=== PATIENT | female | born 1985 | race Hispanic/Latino ===

== ENCOUNTER 2016-08-17 02:32 | Emergency (ER) | payer OTHER ==
[~2016-08-17] VITALS: Ht 160 cm; Wt 70.3 kg
[~2016-08-17 02:32] MED LIST: ADDERALL20 MG PO; ALPRAZOLAM0.5 M3 PO; ALPRAZOLAM1 MG PO; AMBIEN10 M1 PO; AMPHETAMINE SAL20 MG PO; ASPIRIN EC81 M1 PO; BENADRYL EXTRA1 CRE TOP; CITALOPRAM HYDR10 MG PO; CRANBERRY FRUI405 MG PO; CYCLOBENZAPRINE10 M1 PO; CYMBALTA 30 MG30 MG PO; DAILY MULTIPLE1 EACH PO; DELTASONE20 MG PO; DEXAMETHASONE4 MG PO; DEXTROAMP-AMPHE20 MG PO; DEXTROAMP-AMPHE30 M1 PO; DILAUDID 4 MG TA4 MG PO; DILAUDID2 M1 PO; DILAUDID2 MG PO; DOXYCYCLINE MO100 MG PO; ESCITALOPRAM10 MG PO; FIORICET W/CODE1 CAP PO; FLOMAX0.4 M1 PO; HYDROCODONE/ACE1 TAB PO; KETOROLAC TROME10 M1 PO; LEVSIN 0.1250.125 MG PO; MELOXICAM15 MG PO; MIXED AMPHETAMI30 M1 PO; NORCO 325 MG-51 TAB PO; ONDANSETRON ODT4 MG PO; PERCOCET 325 MG1 TA2 PO; PERCOCET 5-3251 EACH PO; PRILOSEC 20MG C20 MG PO; PROMETHAZINE HC25 M3 PO; SEROQUEL 100MG100 MG PO; SEROQUEL25 M1 PO; TRAMADOL50 MG PO; TRAZODONE HCL100 MG PO; ULTRAM(MONOGRAP50 MG PO; ZOFRAN ODT4 MG PO; ZOFRAN ODT4 MG SL; ZOFRAN4 M2 PO; ZOLPIDEM TARTRA10 MG PO
[2016-08-17 02:40] VITALS: BP 124/82
[2016-08-17] MEDS ORDERED: DILAUDID2 M1 PO ×2 (03:17→03:32)
[2016-08-17] MEDS ORDERED: IBUPROFEN600 M1 PO ×2 (03:17→03:32)
[2016-08-17] MEDS ORDERED: BACLOFEN10 M1 PO ×2 (03:17→03:32)
--- NOTE | 2016-08-17 03:18 | ED NECK/BACK PAIN COMPLAINT ---
History of Present Illness General Chief Complaint: Low Back Pain/Injury Stated Complaint: LOWER SPINAL PAIN,SENT IN BY PAIN MANAGEMENT Source: patient, old records Exam Limitations: no limitations Vital Signs & Intake/Output Vital Signs & Intake/Output Vital Signs Date Time Temp Pulse Resp B/P Pulse O2 O2 Flow FiO2 Ox Delivery Rate 08/17 0250 Room Air 08/17 0240 98.2 93 18 124/82 96 Room Air Allergies Coded Allergies: metoclopramide (HIVES 09/28/15) Reconcile Medications Alprazolam 1 MG TABLET 1 TAB PO TID PRN ANXIETY (Reported) Aspirin (Ecotrin*) 81 MG TABLET.DR 1 TAB PO DAILY HEART/BLOOD (Reported) CRANBERRY EXTRACT (Cranberry) (Unknown Strength) CAP (Unknown Dose) PO DAILY SUPPLEMENT (Reported) Dextroamphetamine/Amphetamine (Dextroamp-Amphet ER 30 MG Cap) 30 MG CAP.ER.24H 1 CAP PO QAM ADHD (Reported) Dextroamphetamine/Amphetamine (Dextroamp-Amphetamin 20 MG Tab) 20 MG TABLET 1 TAB PO DAILY PRN ADHD (Reported) Hydromorphone HCl (Dilaudid) 2 MG TABLET 1 TAB PO BIDP PRN PAIN Ketorolac Tromethamine 10 MG TABLET 1 TAB PO TID PRN PAIN Multivitamin (Daily Multiple Vitamin) 1 EACH TABLET 1 TAB PO DAILY SUPPLEMENT (Reported) Ondansetron HCl (Zofran) 4 MG TABLET 1 TAB PO Q6-8P PRN NAUSEA Oxycodone HCl/Acetaminophen (Percocet 5-325 MG Tablet) 5 MG-325 MG TABLET 1 TAB PO Q4-6 PRN PAIN Promethazine HCl 25 MG TABLET 1 TAB PO Q6P PRN NAUSEA Tamsulosin HCl (Flomax) 0.4 MG CAP.ER.24H 1 CAP PO DAILY KIDNEY STONE Zolpidem Tartrate (Ambien 10MG) 10 MG TAB 1 TAB PO PRN SLEEP (Reported) Triage Note: PT TO TRIAGE C/O LOWER BACK PAIN, SENT IN BY PAIN MANAGEMENT PT TAKING NEURONTIN AND OXYCODONE WITHOUT RELIEF. Triage Nurses Notes Reviewed? yes Onset: several days Duration: day(s):, constant, continues in ED Timing: recent history Quality/Severity: moderate, radiation, sharpness Location: lumbar spine, paraspinous muscles Radiation: upper legs Loss of Consciousness: no loss of consciousness Modifying Factors: movement, pain medication Associated Symptoms: lower back pain, muscle spasm LMP (ages 10-50): post menopausal : No Patient currently breastfeeds: No HPI: Several days prior to admission patient is had increasing low back pain with radiation to bilateral lower extremities moderate to severe sharp in quality not relieved with current pain medication regimen. She denies fever chills nausea vomiting diarrhea abdominal pain chest pain shortness breath headache dysuria rash bleeding change in motor sensory function change in bowel bladder habit. Past History Travel History Traveled to [place] past 21 day No Medical History Any Pertinent Medical History? see below for history Neurological: MIGRAINES EENT: NONE Cardiovascular: NONE Respiratory: NONE Gastrointestinal: NONE Hepatic: NONE Renal: nephrolithiasis, nephrostomy Musculoskeletal: NONE, rheumatoid arthritis Psychiatric: chronic pain disorder, depression, ANXIETY, DEPRESSION, PTSD, Endocrine: NONE Blood Disorders: NONE Cancer(s): NONE SIGN MAKER/Reproductive: endometriosis History of MRSA: No History of VRE: No History of CDIFF: No Surgical History Surgical History: cholecystectomy, , NEPHROSTOMY TUBE Psychosocial History Who do you live with Family Services at Home None What is your primary language Khmer Tobacco Use: Current Daily Use Daily Tobacco Use Amount/Type: =< 4 Cigarettes daily ETOH Use: denies use Family History Family History, If Any: MOTHER FH: myocardial infarction Relation not specified for: CVA Hx Contributory? No Review of Systems Review of Systems Constitutional: Reports: no symptoms. Eyes: Reports: no symptoms. Ears, Nose, Throat, Mouth: Reports: no symptoms. Respiratory: Reports: no symptoms. Cardiovascular: Reports: no symptoms. Gastrointestinal/Abdominal: Reports: no symptoms. Musculoskeletal: Reports: see HPI, back pain. Skin: Reports: no symptoms. Neurological/Psychological: Reports: no symptoms. All Other Systems: Reviewed and Negative Physical Exam Physical Exam General Appearance: well developed/nourished, alert, awake, anxious, moderate distress, obese Head: atraumatic, normal appearance Eyes: Bilateral: normal appearance, PERRL, EOMI, normal inspection. Ears, Nose, Throat, Mouth: hearing grossly normal, moist mucous membrane Neck: normal inspection, supple, full range of motion, normal alignment Respiratory: normal breath sounds Cardiovascular: regular rate/rhythm Peripheral Pulses: 4+ carotid (R), 4+ carotid (L) Gastrointestinal: normal bowel sounds, soft, non-tender, no organomegaly Back: normal inspection Extremities: normal range of motion Straight Leg Raising: Right: Pain at ____ degrees (10). Left: Pain at ____ degrees (10). Motor: Deficit L4 Right: No Deficit L4 Left: No Deficit L5 Right: No Deficit L5 Left: No Deficit S1 Right: No Deficit S1 Right: No DTR: Deficit L4 Left: No Deficit L4 Right: No Deficit S1 Left: No Deficit S1 Right: No Patellar: 3: L4 Right, L4 Left. Neurologic/Psych: awake, alert, oriented x 3, normal mood/affect Skin: intact, normal color, warm/dry Progress Differential Diagnosis: herniated disc, myofascial strain, T/L spine injury Plan of Care: Current Medications Sig/Erik Start time Last Medication Dose Stop Time Status Admin Cyclobenzaprine HCl 10 MG ONCE ONE 08/17 314 UNVr (Flexeril 10MG Tab) 08/17 315 Gabapentin 600 MG ONCE ONE 08/17 314 UNVr (Neurontin) 08/17 315 Ibuprofen 800 MG ONCE ONE 08/17 314 UNVr (Motrin) 08/17 315 Oxycodone HCl 10 MG ONCE ONE 08/17 314 UNVr (Roxicodone) 08/17 315 Departure Departure Time of Disposition: 314 Disposition: HOME OR SELF CARE Condition: Stable Clinical Impression Primary Impression: Chronic pain syndrome Referrals: STEFAN TOWNSEND MD (PCP/Family) Additional Instructions: Increase your gabapentin to 2 capsules 3 times a day Departure Forms: Customer Survey General Discharge Information Prescriptions: Current Visit Scripts Ibuprofen 1 TAB PO Q6PRN PRN pain #50 TAB with food Baclofen 1 TAB PO TIDPRN PRN muscle spasm/strain #30 TAB Hydromorphone HCl (Dilaudid) 1 TAB PO Q6P PRN pain #15 TAB
== END 2016-08-17 03:46 ==
LOC: ERH 02:32
DX: G89.4 Chronic pain syndrome (principal)

== ENCOUNTER 2016-09-10 02:29 | Emergency (ER) | payer OTHER ==
[~2016-09-10] VITALS: Ht 160 cm; Wt 72.6 kg
[~2016-09-10 02:29] MED LIST changes: +BACLOFEN10 M1 PO; +IBUPROFEN600 M1 PO
[2016-09-10 02:39] VITALS: BP 121/76
--- NOTE | 2016-09-10 02:47 | ED HEAD/FACIAL INJ COMPLAINT ---
History of Present Illness General Chief Complaint: Fall Stated Complaint: PER PT FELL OUT OF SHOWER ? LOC HIT HEAD HX SEIZUR Source: patient, family, old records Exam Limitations: no limitations Vital Signs & Intake/Output Vital Signs & Intake/Output Vital Signs Date Time Temp Pulse Resp B/P Pulse O2 O2 Flow FiO2 Ox Delivery Rate 09/10 0245 98 Room Air 09/10 0239 97.4 79 18 121/76 100 Room Air Allergies Coded Allergies: metoclopramide (HIVES 09/28/15) Reconcile Medications Alprazolam 1 MG TABLET 1 TAB PO TID PRN ANXIETY (Reported) Aspirin (Ecotrin*) 81 MG TABLET.DR 1 TAB PO DAILY HEART/BLOOD (Reported) Baclofen 10 MG TABLET 1 TAB PO TIDPRN PRN muscle spasm/strain CRANBERRY EXTRACT (Cranberry) (Unknown Strength) CAP (Unknown Dose) PO DAILY SUPPLEMENT (Reported) Dextroamphetamine/Amphetamine (Dextroamp-Amphet ER 30 MG Cap) 30 MG CAP.ER.24H 1 CAP PO QAM ADHD (Reported) Dextroamphetamine/Amphetamine (Dextroamp-Amphetamin 20 MG Tab) 20 MG TABLET 1 TAB PO DAILY PRN ADHD (Reported) Hydromorphone HCl (Dilaudid) 2 MG TABLET 1-2 TAB PO Q6P PRN severe pain Hydromorphone HCl (Dilaudid) 2 MG TABLET 1 TAB PO BIDP PRN PAIN Ibuprofen 600 MG TABLET 1 TAB PO Q6PRN PRN pain with food Ketorolac Tromethamine 10 MG TABLET 1 TAB PO TID PRN PAIN Multivitamin (Daily Multiple Vitamin) 1 EACH TABLET 1 TAB PO DAILY SUPPLEMENT (Reported) Ondansetron HCl (Zofran) 4 MG TABLET 1 TAB PO Q6-8P PRN NAUSEA Oxycodone HCl/Acetaminophen (Percocet 5-325 MG Tablet) 5 MG-325 MG TABLET 1 TAB PO Q4-6 PRN PAIN Promethazine HCl 25 MG TABLET 1 TAB PO Q6P PRN NAUSEA Tamsulosin HCl (Flomax) 0.4 MG CAP.ER.24H 1 CAP PO DAILY KIDNEY STONE Zolpidem Tartrate (Ambien 10MG) 10 MG TAB 1 TAB PO PRN SLEEP (Reported) Triage Note: PT FROM HOME C/O FELL IN SHOWER. ABOUT 40 MINS?AGO , PT SEEMS LETHARGIC IN TRIAGE, VSS, WHEN THIS RN ASKED PT QUESTIONS, PT ANSWERED RN WITH A SLOW RESPONSE AND SLURRED SPEECH. 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 A FUAD BASKET BROKE PTS FALL PER . PTS STATES THAT PT -LOC. PT BROUGHT DIRECTLY BACK TO RM 2, DR ANDERSON AT BEDSIDE FOR EVAL Triage Nurses Notes Reviewed? yes : No Patient currently breastfeeds: No HPI: Patient has been feeling weak and lethargic over the past few days. Tonight she felt anxious and she has a history of anxiety. Patient states that when she gets anxious she takes hot shower to feel better. Patient was in the shower when suddenly she fell backwards and fell out of the shower and hit her head. Her was in the bathroom with her. denies any loss of consciousness however the patient has been lethargic since the injury. Patient does have a history of seizures but he did not notice any seizure-like activity. He became concerned because the patient has been confused since the fall. Patient states that she has a throbbing headache which is diffuse. There is no radiation. The pain is 4 out of 10. The pain is constant. There are no aggravating or mitigating factors. There is no photophobia or blurry vision. There is no nausea or vomiting. Patient is also complaining of neck and upper back pain. The pain is aching in nature and is nonradiating. There are no aggravating or mitigating factors. She rates the pain is 5 out of 10. Past History Travel History Traveled to [place] past 21 day No Medical History Any Pertinent Medical History? see below for history Neurological: MIGRAINES EENT: NONE Cardiovascular: NONE Respiratory: NONE Gastrointestinal: NONE Hepatic: NONE Renal: nephrolithiasis, nephrostomy Musculoskeletal: NONE, rheumatoid arthritis Psychiatric: chronic pain disorder, depression, ANXIETY, DEPRESSION, PTSD, Endocrine: NONE Blood Disorders: NONE Cancer(s): NONE AUTOMATION OPERATOR/Reproductive: endometriosis History of MRSA: No History of VRE: No History of CDIFF: No Surgical History Surgical History: cholecystectomy, , NEPHROSTOMY TUBE Psychosocial History Who do you live with Family Services at Home None What is your primary language Costa Rican Tobacco Use: Never used ETOH Use: denies use Illicit Drug Use: denies illicit drug use Family History Family History, If Any: MOTHER FH: myocardial infarction Relation not specified for: CVA Hx Contributory? No Review of Systems Review of Systems Constitutional: Reports: see HPI, weakness. EENTM: Reports: no symptoms. Respiratory: Reports: no symptoms. Cardiovascular: Reports: no symptoms. GI: Reports: no symptoms. Genitourinary: Reports: no symptoms. Musculoskeletal: Reports: see HPI, back pain, neck pain. Skin: Reports: no symptoms. Neurological/Psychological: Reports: see HPI, headache. Hematologic/Endocrine: Reports: no symptoms. Immunologic/Allergic: Reports: no symptoms. All Other Systems: Reviewed and Negative Physical Exam Physical Exam General Appearance: well developed/nourished, alert, awake, lethargic, moderate distress Head: atraumatic, normal appearance Eyes: Bilateral: PERRL, EOMI. Ears, Nose, Throat: normal pharynx, normal ENT inspection, hearing grossly normal Neck: normal inspection, supple, no midline tenderness Respiratory: normal breath sounds, chest non-tender, no respiratory distress, lungs clear Cardiovascular: regular rate/rhythm, normal peripheral pulses Gastrointestinal: normal bowel sounds, soft, non-tender, no organomegaly Back: normal inspection, normal range of motion, decreased range of motion, muscle spasm, no vertebral tenderness Extremities: normal inspection, normal capillary refill, normal range of motion, no edema Psychiatric: awake, alert, oriented x 3 Cranial Nerves: normal hearing, normal speech, PERRL Skin: intact, normal color, warm/dry Lymphatic: no anterior cervical nimco Progress Differential Diagnosis: c-spine injury, ICH Plan of Care: Orders Procedure Date/time Status URINE DRUGS OF ABUSE 09/10 246 Complete URINALYSIS 09/10 246 Complete HUMAN BETA HCG SCREEN 09/10 246 Complete ETHANOL 09/10 246 Complete COMPREHENSIVE METABOLIC PANEL 09/10 246 Complete CBC WITHOUT DIFFERENTIAL 09/10 246 Complete Laboratory Tests 09/10/16 0305: Serum Alcohol < 10.0 09/10/16 0305: Anion Gap 11, Estimated GFR > 60, BUN/Creatinine Ratio 17.1, Glucose 95, Calcium 9.3, Total Bilirubin 0.4, AST 13 L, ALT 20, Alkaline Phosphatase 109, Total Protein 7.3, Albumin 3.9, Globulin 3.4, Albumin/Globulin Ratio 1.1, Total Beta HCG NEGATIVE, CBC w Diff NO MAN DIFF REQ, RBC 4.62, MCV 82.8, MCH 27.3, RDW 16.0 H, MPV 8.4, Gran % 55.6, Lymphocytes % 34.3, Monocytes % 5.9, Eosinophils % 3.5 , Basophils % 0.7, Absolute Granulocytes 5.3, Absolute Lymphocytes 3.3, Absolute Monocytes 0.6, Absolute Eosinophils 0.3, Absolute Basophils 0.1, PUBS MCHC 33.0, Urine Opiates Screen < 100.00, Methadone Screen 61, Barbiturate Screen < 60, Ur Phencyclidine Scrn < 6.00, Amphetamines Screen 669, U Benzodiazepines Scrn > 800 H, Urine Cocaine Screen < 50, Urine Cannabis Screen 12.30, Urine Color YEL, Urine Clarity CLEAR, Urine pH 6.0, Ur Specific Mercer 1.020, Urine Protein NEG, Urine Ketones TRACE H, Urine Nitrite NEG, Urine Bilirubin NEG, Urine Urobilinogen 0.2, Ur Leukocyte Esterase NEG, Ur Microscopic EXAM NOT REQUIRED, Urine Hemoglobin NEG, Urine Glucose NEG Diagnostic Imaging: Viewed by Me: CT Scan. Discussed w/RAD: CT Scan. Radiology Impression: PATIENT: LILIANA LYNCH PRESENT AGE: 31 PATIENT ACCOUNT NO: [id number] : 84 LOCATION: [facility] ORDERING PHYSICIAN: MOSES ANDERSON MD SERVICE DATE: 09/10/16 EXAM TYPE: CAT - CT CERV SPINE WO IV CONTRAST; CT HEAD WO IV CONTRAST EXAMINATION: NONCONTRAST HEAD CT NONCONTRAST CERVICAL SPINE CT INDICATION INFORMATION: Fall. Head injury. COMPARISON: 12/18/2014 TECHNIQUE: Separate noncontrast CT examinations of the head and cervical spine were performed. Coronal and sagittal images were created for each examination at the technologist workstation. FINDINGS: Head: There is no evidence of acute intracranial hemorrhage or territorial infarction. No abnormal mass effect or midline shift is seen. Nixon to white matter differentiation is well preserved. No extra-axial fluid collections are identified. No hydrocephalus. No significant volume loss. There is no abnormal attenuation within the brain parenchyma. The osseous structures and soft tissues are normal. The mastoid air cells and visualized portions of the paranasal sinuses are well aerated. Cervical spine: There is anatomic alignment of the vertebral bodies and posterior elements. The atlantoaxial and atlantooccipital articulations are intact. Vertebral body heights and intervertebral disc spaces are maintained. No evidence of acute fracture. No prevertebral soft tissue swelling. Visualized portions of the lung apices are unremarkable. The thyroid gland is unremarkable. IMPRESSION: 1. No acute intracranial findings. 2. No acute fracture or malalignment of the cervical spine. DICTATED BY: JAHAIRA WINN MD DATE/TIME DICTATED:09/10/16401 FURNACE LOADER:NIMA DATE/TIME TRANSCRIBED:09/10/16401 CONFIDENTIAL, DO NOT COPY WITHOUT APPROPRIATE AUTHORIZATION. <Electronically signed in Other Vendor System> SIGNED BY: PA ALMAZAN,JAHAIRA 09/10/16407 Comments: Patient advised of her benzodiazepine level in her urine. Patient states that she takes Xanax exactly as it is prescribed. Patient is on 1 mg of Xanax 3 times a day. Patient states that she has not been taking more of it. Patient does state that she recently was started on Neurontin as well as taking the Xanax so there may be an interaction between those two causing her increased lethargy. Departure Departure Disposition: HOME OR SELF CARE Condition: Stable Clinical Impression Primary Impression: Concussion Qualifiers: Encounter type: initial encounter Loss of consciousness presence/ duration: without LOC Qualified Code: S06.0X0A - Concussion without loss of consciousness, initial encounter Secondary Impressions: Cervical strain Qualifiers: Encounter type: initial encounter Qualified Code: S16.1XXA - Strain of muscle, fascia and tendon at neck level, initial encounter Head injury Qualifiers: Encounter type: initial encounter Qualified Code: S09.90XA - Unspecified injury of head, initial encounter Referrals: BRODY TOWNSEND MD (PCP/Family) Additional Instructions: FOLLOW UP WITH DR. TOWNSEND REGUARDING YOUR FATIGUE, ETC REUTRN IF SYMPTOMS WORSEN OR FOR ANY COCNERNS Departure Forms: Customer Survey General Discharge Information Prescriptions: Current Visit Scripts Tylenol With Codeine (Tylenol With Codeine #3 Tablet) 1 TAB PO Q8P PRN PAIN #20 TAB
[2016-09-10 03:16] LABS: ABSOLUTE BASOPHIL COUNT 0.1 /CUMM (0.0-0.2); ABSOLUTE EOSINOPHIL COUNT 0.3 /CUMM (0.0-0.7); ABSOLUTE GRANULOCYTE CT 5.3 /CUMM (1.4-6.5); ABSOLUTE LYMPH COUNT 3.3 /CUMM (1.2-3.4); ABSOLUTE MONOCYTE COUNT 0.6 /CUMM (0.10-0.60); BASOPHIL % 0.7 % (0.0-2.0); EOSINOPHIL % 3.5 % (0-5); GRANULOCYTE % 55.6 % (42.2-75.2); HEMATOCRIT 38.2 % (37-47); MEAN CORPUSCULAR HGB 27.3 PG (27.0-31.0); MEAN CORPUSCULAR VOLUME 82.8 FL (81.0-99.0); MEAN PLATELET VOLUME 8.4 FL (7.4-10.4); PLATELET COUNT 259 /CUMM (130-400); RED BLOOD CELL CT 4.62 /CUMM (4.20-5.40); WHITE BLOOD CELL COUNT 9.5 /CUMM (4.8-10.8)
--- NOTE | 2016-09-10 04:08 | CT SCAN REPORT ---
EXAMINATION: NONCONTRAST HEAD CT NONCONTRAST CERVICAL SPINE CT INDICATION INFORMATION: Fall. Head injury. COMPARISON: 12/18/2014 TECHNIQUE: Separate noncontrast CT examinations of the head and cervical spine were performed. Coronal and sagittal images were created for each examination at the technologist workstation. FINDINGS: Head: There is no evidence of acute intracranial hemorrhage or territorial infarction. No abnormal mass effect or midline shift is seen. Nixon to white matter differentiation is well preserved. No extra-axial fluid collections are identified. No hydrocephalus. No significant volume loss. There is no abnormal attenuation within the brain parenchyma. The osseous structures and soft tissues are normal. The mastoid air cells and visualized portions of the paranasal sinuses are well aerated. Cervical spine: There is anatomic alignment of the vertebral bodies and posterior elements. The atlantoaxial and atlantooccipital articulations are intact. Vertebral body heights and intervertebral disc spaces are maintained. No evidence of acute fracture. No prevertebral soft tissue swelling. Visualized portions of the lung apices are unremarkable. The thyroid gland is unremarkable. IMPRESSION: 1. No acute intracranial findings. 2. No acute fracture or malalignment of the cervical spine.
[2016-09-10] MEDS ORDERED: TYLENOL WITH C1 EACH PO (04:18)
== END 2016-09-10 04:23 ==
LOC: ERH 02:29
PROVIDERS: Emergency Medicine
DX: S06.0X0A Concussion without loss of consciousness, initial encounter (principal); S16.1XXA Strain of muscle, fascia and tendon at neck level, initial encounter; S09.90XA Unspecified injury of head, initial encounter; F41.9 Anxiety disorder, unspecified; R51 Headache; R56.9 Unspecified convulsions; M54.2 Cervicalgia
CPT/HCPCS: 80307; 81003; G0480

== ENCOUNTER 2016-09-10 21:06 | Emergency (ER) | payer OTHER ==
[~2016-09-10 21:06] MED LIST changes: +TYLENOL WITH C1 EACH PO
[2016-09-10 21:14] VITALS: BP 108/72
--- NOTE | 2016-09-10 22:36 | ED GENERAL ADULT ---
History of Present Illness General Chief Complaint: Lower Extremity Problems Stated Complaint: PT HAS PAIN IN BOTH OF HER LEGS Source: patient Exam Limitations: no limitations Vital Signs & Intake/Output Vital Signs & Intake/Output Vital Signs Date Time Temp Pulse Resp B/P Pulse O2 O2 Flow FiO2 Ox Delivery Rate 09/10 2114 97.9 89 22 108/72 98 ED Intake and Output 09/11 0000 09/10 1200 Intake Total 0 Output Total Balance 0 Intake, Oral 0 Allergies Coded Allergies: metoclopramide (HIVES 09/28/15) Reconcile Medications Alprazolam 1 MG TABLET 1 TAB PO TID PRN ANXIETY (Reported) Aspirin (Ecotrin*) 81 MG TABLET.DR 1 TAB PO DAILY HEART/BLOOD (Reported) Baclofen 10 MG TABLET 1 TAB PO TIDPRN PRN muscle spasm/strain CRANBERRY EXTRACT (Cranberry) (Unknown Strength) CAP (Unknown Dose) PO DAILY SUPPLEMENT (Reported) Dextroamphetamine/Amphetamine (Dextroamp-Amphet ER 30 MG Cap) 30 MG CAP.ER.24H 1 CAP PO QAM ADHD (Reported) Dextroamphetamine/Amphetamine (Dextroamp-Amphetamin 20 MG Tab) 20 MG TABLET 1 TAB PO DAILY PRN ADHD (Reported) Hydromorphone HCl (Dilaudid) 2 MG TABLET 1-2 TAB PO Q6P PRN severe pain Hydromorphone HCl (Dilaudid) 2 MG TABLET 1 TAB PO BIDP PRN PAIN Ibuprofen 600 MG TABLET 1 TAB PO Q6PRN PRN pain with food Ketorolac Tromethamine 10 MG TABLET 1 TAB PO TID PRN PAIN Multivitamin (Daily Multiple Vitamin) 1 EACH TABLET 1 TAB PO DAILY SUPPLEMENT (Reported) Ondansetron HCl (Zofran) 4 MG TABLET 1 TAB PO Q6-8P PRN NAUSEA Oxycodone HCl/Acetaminophen (Percocet 5-325 MG Tablet) 5 MG-325 MG TABLET 1 TAB PO Q4-6 PRN PAIN Promethazine HCl 25 MG TABLET 1 TAB PO Q6P PRN NAUSEA Tamsulosin HCl (Flomax) 0.4 MG CAP.ER.24H 1 CAP PO DAILY KIDNEY STONE Tylenol With Codeine (Tylenol With Codeine #3 Tablet) 300 MG-30 MG TABLET 1 TAB PO Q8P PRN PAIN Zolpidem Tartrate (Ambien 10MG) 10 MG TAB 1 TAB PO PRN SLEEP (Reported) Triage Note: PER PT PAIN TO BILAT LOWER LEGS, L ARM AND RLQ PAIN HAS GOTTEN PROGRESSIVELY WORSE. SEEN AT ANOTHER ED (did not name ed) BUT WAS UNSATIFIED WITH CARE. Triage Nurses Notes Reviewed? yes Onset: Gradual Duration: constant Timing: recent history Severity: severe Severity Numbers: 10 : No Patient currently breastfeeds: No HPI: Patient is a 31-year-old female who presents emergency room with concerns of generalized body aches and weakness and fatigue. It is noted through old records the patient was evaluated here [facility] emergency room yesterday in the evening at 4 AM for concerns of a fall that occurred in the shower however no seizure-like activity was noted patient received CT scan of head and cervical spine and blood work with unremarkable findings patient was safely discharged home and was noted at the time the patient had increased levels of benzodiazepines. Patient states that she has a significant history of rheumatoid arthritis and states that she has denies body aches and feels that she has an exacerbation of gastritis however patient does state that she used to take methotrexate and prednisone however this was discontinued Patient is tolerating by mouth no change in symptoms Last bowel movement was within the last 24 hours no blood no melena noted. Denies any cough shortness of breath chest pain and arm pain and jaw pain leg swelling hemoptysis history DVT or PE ([address]) Past History Travel History Traveled to [place] past 21 day No Medical History Any Pertinent Medical History? see below for history Neurological: MIGRAINES EENT: NONE Cardiovascular: NONE Respiratory: NONE Gastrointestinal: NONE Hepatic: NONE Renal: nephrolithiasis, nephrostomy Musculoskeletal: NONE, rheumatoid arthritis Psychiatric: chronic pain disorder, depression, ANXIETY, DEPRESSION, PTSD, Endocrine: NONE Blood Disorders: NONE Cancer(s): NONE SEWER CONNECTOR/Reproductive: endometriosis History of MRSA: No History of VRE: No History of CDIFF: No Surgical History Surgical History: cholecystectomy, , NEPHROSTOMY TUBE Psychosocial History Who do you live with Family Services at Home None What is your primary language Yoruba Tobacco Use: Never used Family History Family History, If Any: MOTHER FH: myocardial infarction Relation not specified for: CVA Hx Contributory? No ([address]) Review of Systems Review of Systems Constitutional: Reports: no symptoms. EENTM: Reports: no symptoms. Respiratory: Reports: no symptoms. Cardiovascular: Reports: no symptoms. GI: Reports: no symptoms. Genitourinary: Reports: no symptoms. Musculoskeletal: Reports: see HPI, joint pain, muscle pain. Skin: Reports: no symptoms. Neurological/Psychological: Reports: no symptoms. Hematologic/Endocrine: Reports: no symptoms. Immunologic/Allergic: Reports: no symptoms. All Other Systems: Reviewed and Negative ([address]) Physical Exam Physical Exam General Appearance: no apparent distress, alert, comfortable Comments: Well-developed well-nourished person in no acute distress HEENT: Normal EENT exam, extraocular motion intact, no nystagmus. Pupils equally round and reactive to light and accommodation. Nose is atraumatic. External auditory canal and Tympanic membranes clear. Pharynx normal. No swelling or edema. Neck: Supple, no lymphadenopathy, normal range of motion without pain or tenderness Back: Nontender, no CVA tenderness. Cardiovascular: Regular rate and rhythms no murmurs rubs or gallops, normal JVP Respiratory: Chest nontender. No respiratory distress.breath sounds clear to auscultation bilaterally Abdomen: Soft, nontender nondistended, no appreciable organomegaly. Normal bowel sounds. No ascites Extremity: No edema, no calf tenderness to palpation, normal and equal pulses. Bilateral upper extremity lower extremity myotomes and dermatomes intact Neuro: Alert oriented x3, motor sensory normal, cranial nerves II through XII grossly intact. Skin: No appreciable rash on exposed skin, skin is warm and dry. Psych: Mood and affect is normal, memory and judgment is normal. Core Measures ACS in differential dx? No CVA/TIA Diagnosis: No Severe Sepsis Present: No Septic Shock Present: No ([address]) Progress Differential Diagnoses I considered the following diagnoses in my evaluation of the patient: [ICH, concussion, PE, arthritis, arthralgia,] Plan of Care: When I initially discussed patient's recent emergency room visit last night patient states that she does not remember this and states that she was not here. I did place a call to patient's who confirmed that patient was here and was evaluated and did receive a prescription of Tylenol with Codeine and he was not concerned of any intoxication for patient and no other fall had occurred since she was discharged from here. He was discussing with me that patient has been complaining of a four-day history of generalized body aches and confirmed patient's history. Patient on exam had a nontender abdomen and no concerned of appendicitis patient 's cranial nerves were intact and had normal steady gait and no signs of intoxication. I initially offered patient ketorolac for her pain however patient refused this medication and was offered ibuprofen and then refused. Patient states that she requested to be discharged from the hospital On discharge patient was in no apparent distress alert and oriented Discussed patient with Dr. BARNES agrees with disposition and plan Initial ED EKG: none ([address]) Departure Departure Disposition: HOME OR SELF CARE Condition: Stable Clinical Impression Primary Impression: Post concussion syndrome Referrals: KRISTIAN ALMAZAN,STEFAN (PCP/Family) Additional Instructions: As discussed tomorrow please follow-up with your established director water and waste services and neurologist if symptoms continue. Continue home medications as directed for your symptoms. Continue your previously prescribed Tylenol with Codeine as directed for your symptoms. If symptoms worsen return to emergency room Departure Forms: Customer Survey General Discharge Information ([address]) PA/CHIEF PROCUREMENT OFFICER Co-Sign Statement Statement: ED Attending supervision documentation- [] I saw and evaluated the patient. I have also reviewed all the pertinent lab results and diagnostic results. I agree with the findings and the plan of care as documented in the PA's/CHIEF PROCUREMENT OFFICER's documentation. [X] I have reviewed the ED Record and agree with the PA's/CHIEF PROCUREMENT OFFICER's documentation. [] Additions or exceptions (if any) to the PAs/CHIEF PROCUREMENT OFFICER's note and plan are summarized below: [] (CAMERON ALMAZAN,NICCI) Critical Care Note Critical Care Note Critical Care Time: non-applicable ([address])
== END 2016-09-10 23:17 ==
LOC: ERH 21:06
DX: F07.81 Postconcussional syndrome (principal)
CPT/HCPCS: 99282

== ENCOUNTER 2016-12-23 14:44 | Emergency (ER) | payer OTHER ==
[~2016-12-23] VITALS: Ht 160 cm; Wt 65.8 kg
[2016-12-23 15:08] VITALS: BP 122/80
[2016-12-23] MEDS ORDERED: GABAPENTIN300 M2 PO (16:24)
[2016-12-23] MEDS ORDERED: OXYCODONE HCL10 M2 PO (16:25)
[2016-12-23] MEDS ORDERED: QUETIAPINE FUMA50 M1 PO (16:25)
[2016-12-23] MEDS ORDERED: OMEPRAZOLE20 M3 PO (16:25)
[2016-12-23] MEDS ORDERED: PRISTIQ ER25 MG PO (16:25)
[2016-12-23] MEDS ORDERED: ALPRAZOLAM1 M2 PO (16:26)
--- NOTE | 2016-12-23 16:51 | ED NECK/BACK PAIN COMPLAINT ---
History of Present Illness General Chief Complaint: Low Back Pain/Injury Stated Complaint: PT IS HERE FOR BACK PAIN Source: patient, old records Exam Limitations: no limitations Vital Signs & Intake/Output Vital Signs & Intake/Output Vital Signs Date Time Temp Pulse Resp B/P B/P Pulse O2 O2 Flow FiO2 Mean Ox Delivery Rate 12/23 1508 98.6 99 18 122/80 98 Room Air ED Intake and Output 12/24 0000 12/23 1200 Intake Total Output Total Balance Patient 145 lb Weight Weight Reported by Patient Measurement Method Allergies Coded Allergies: metoclopramide (HIVES 09/28/15) Reconcile Medications Alprazolam 1 MG TABLET 1 TAB PO TID PRN ANXIETY (Reported) Aspirin (Ecotrin*) 81 MG TABLET.DR 1 TAB PO DAILY HEART/BLOOD (Reported) Desvenlafaxine Succinate (Pristiq ER) 25 MG TAB.ER.24H 1 TAB PO DAILY MENTAL HEALTH (Reported) Gabapentin 300 MG CAPSULE 1 CAP PO TID NERVE PAIN (Reported) Multivitamin (Daily Multiple Vitamin) 1 EACH TABLET 1 TAB PO DAILY SUPPLEMENT (Reported) Omeprazole 20 MG TABLET.DR 1 TAB PO DAILY GI (Reported) Oxycodone HCl 10 MG TABLET 1 TAB PO TID PRN PAIN (Reported) Quetiapine Fumarate 50 MG TABLET 1 TAB PO QPM PRN SLEEP (Reported) Zolpidem Tartrate (Ambien) 10 MG TABLET 1 TAB PO QPM SLEEP (Reported) Triage Note: 31 YO FEMALE TO TRIAGE C/O MID-LOW BACK PAIN S/P LIFTING LAUNDRY. PAIN IS NONRADIATING. Triage Nurses Notes Reviewed? yes Onset: Gradual Duration: day(s): (1) Timing: recent history Quality/Severity: moderate Location: lumbar spine, paraspinous muscles Radiation: none Context: LIFTING LAUNDRY Method of Injury: prior injury : No Patient currently breastfeeds: No HPI: Patient is a 31-year-old female with history of chronic back pain, on pain management presenting to the emergency department with chief complaint of worsening low back pain after lifting laundry earlier today. Pain is achy and throbbing. Pain is nonradiating. Denies any urinary incontinence or retention. She called her pain management doctor and he recommended that she go to the emergency department for evaluation. She no relief with her oral oxycodone prior to arrival. He was supposed to call her and a muscle relaxer. She has not taken it yet. (JAC MCCALL) Past History Travel History Traveled to [place] past 21 day No Medical History Any Pertinent Medical History? see below for history Neurological: MIGRAINES FIBROMYALGIA EENT: NONE Cardiovascular: NONE Respiratory: NONE Gastrointestinal: NONE Hepatic: NONE Renal: nephrolithiasis, nephrostomy Musculoskeletal: NONE, rheumatoid arthritis Psychiatric: chronic pain disorder, depression, ANXIETY, DEPRESSION, PTSD, Endocrine: NONE Blood Disorders: NONE Cancer(s): NONE SHOULDER SAWYER/Reproductive: endometriosis History of MRSA: No History of VRE: No History of CDIFF: No Surgical History Surgical History: cholecystectomy, , NEPHROSTOMY TUBE Psychosocial History Who do you live with Family Services at Home None What is your primary language Paraguayan Tobacco Use: Current Daily Use Daily Tobacco Use Amount/Type: => 5 Cigarettes daily ETOH Use: denies use Illicit Drug Use: denies illicit drug use Family History Family History, If Any: MOTHER FH: myocardial infarction Relation not specified for: CVA Hx Contributory? No (JAC MCCALL) Review of Systems Review of Systems Constitutional: Reports: no symptoms. Comments Review of systems: See HPI, All other systems negative. Constitutional, no chills fever or weight loss HEENT: No visual changes no sore throat no congestion Cardiovascular: No chest pain ,palpitation Skin, no jaundice no rashes Respiratory: No dyspnea cough sputum or hemoptysis GI: No nausea no vomiting : No dysuria No hematuria Muscle skeletal: no neck pain, Neurologic: No numbness no confusion Psych: No stress anxiety or depression,. Heme/endocrine: No bruising no bleeding no polyuria or polydipsia Immunology: No splenectomy or history of AIDS (JAC MCCALL) Physical Exam Physical Exam General Appearance: well developed/nourished, no apparent distress, alert, awake , comfortable Neck: normal inspection, supple, full range of motion Comments: Well-developed well-nourished person in no acute distress HEENT: Nose is atraumatic. Neck: Supple, full range of motion, no C-spine tenderness. Back: Tender to palpation in the lumbar paraspinal region, also tender to palpation over L4, L5. No obvious signs of trauma. Limited range of motion with back extension and flexion. Mild tenderness to palpation over the posterior left lung field over the ribs. No point tenderness. Cardiovascular: Regular rate and rhythms no murmurs rubs or gallops, normal JVP Respiratory: Chest nontender. No respiratory distress.breath sounds clear to auscultation bilaterally Extremity: No edema, no calf tenderness to palpation, normal and equal pulses. Neuro: Alert oriented x3, motor sensory normal, patellar reflexes are 2+ bilaterally. Skin: No appreciable rash on exposed skin, skin is warm and dry. Psych: Mood and affect is normal, memory and judgment is normal. (JAC MCCALL) Progress Differential Diagnosis: myofascial strain, sciatica, COMPRESSION FRACTURE, HERNIATED DISC, EXACERBATION OF CHRONIC PAIN, CAUDA EQUINA Plan of Care: Current Medications Sig/Erik Start time Last Medication Dose Stop Time Status Admin Ketorolac 60 MG ONCE ONE 12/23 1699 CAN Tromethamine 12/23 1700 (Toradol) Oxycodone/ 1 TAB ONCE ONE 12/23 1699 CAN Acetaminophen 12/23 1700 (Percocet) Comments: Ordered IM Toradol and by mouth Percocet for this patient. Patient refused these medications. She would like IV or IM injection of narcotic pain medication. Patient is on chronic pain medication at home. I do not feel comfortable administering IM or IV narcotic medication to this patient. She refused any medications and would likely. She left prior to signing out against advice. She'll follow up with pain management. No acute distress, nontoxic. (JAC MCCALL) Departure Departure Time of Disposition: 1715 Disposition: LEFT AGAINST MEDICAL ADVICE Condition: Stable Clinical Impression Primary Impression: Back pain Qualifiers: Back pain location: low back pain Chronicity: unspecified Back pain laterality: bilateral Sciatica presence: without sciatica Qualified Code: M54.5 - Low back pain Referrals: STEFAN TOWNSEND MD (PCP/Family) Additional Instructions: Follow-up with your primary care physician and your rug touch up painter. Return for worsening symptoms or concerns. CONTINUE taking previously prescribed pain medication. Departure Forms: Customer Survey General Discharge Information (JAC MCCALL) PA/SALARY MANAGER Co-Sign Statement Statement: ED Attending supervision documentation- [] I saw and evaluated the patient. I have also reviewed all the pertinent lab results and diagnostic results. I agree with the findings and the plan of care as documented in the PA's/SALARY MANAGER's documentation. [X] I have reviewed the ED Record and agree with the PA's/SALARY MANAGER's documentation. [] Additions or exceptions (if any) to the PAs/SALARY MANAGER's note and plan are summarized below: [] (CAMERON ALMAZAN,NICCI)
== END 2016-12-23 17:15 | disposition left against medical advice (07) ==
LOC: ERH 14:44
DX: M54.5 Low back pain (principal)